=== PATIENT | female | born 1955 | race Caucasian/White ===

== ENCOUNTER → 2016-04-05 | Outpatient (CLI) | payer OTHER ==
[~2016-04-05] MED LIST: CALC-20 PO; CMD5 PO; LPR25 PO; MAGN400T5 PO; RAMI10CA PO; SERT50TA PO
[2016-04-05 15:53] LABS: URINE APPEARANCE TURBID (CLEAR); URINE BILIRUBIN NEG (NEG); URINE COLOR YELLOW; URINE EPITHELIAL CELL AUTO 20-30 /lpf (0-5); URINE NITRITE NEG (NEG); URINE SPECIFIC GRAVITY 1.022 (1.000-1.030); UROBILINOGEN NEG (NEG)
[2016-04-05 15:59] LABS: MANUAL MICROSCOPIC REQUIRED? NO; REVIEW REQ? YES
== END | disposition home or self-care (01) ==
LOC: C.LABSPEC 15:27
PROVIDERS: ATTEND Internal Medicine Hematology
DX: C56.9 Malignant neoplasm of unspecified ovary (principal)

== ENCOUNTER 2017-02-24 10:20 | Emergency (ER) | payer OTHER ==
[~2017-02-24] VITALS: Ht 167.6 cm; Wt 144.8 kg
[2017-02-24 10:30] VITALS: TEMP 36.6; Ht 167.6 cm; Wt 144.8 kg
[2017-02-24] MEDS ORDERED: WARF5TAB7 PO (11:14)
[2017-02-24] MEDS ORDERED: BENZONATATE 100MG CAP PO ONE (11:15)
[2017-02-24 11:56] LABS: BASO % 0.3 %; BASO ABS # 0.02 K/uL (0-0.2); EOS % 1.7 %; EOS ABS # 0.13 K/uL (0-0.5); HEMOGLOBIN 10.2 g/dL (12.0-16.0); IG# 0.02 K/uL (0.00-0.02); LYMPH % 14.9 %; LYMPH ABS # 1.13 K/uL (1.2-3.4); MEAN CELL VOLUME 87.9 fL (80-100); MEAN CORPUSCULAR HGB CONC 31.9 g/dl (32-36); MEAN PLATELET VOLUME 9.1 fL (7.4-10.4); MONO % 6.5 %; MONO ABS # 0.49 K/uL (0.11-0.59); NEUT % 76.3 %; NEUT ABS # 5.77 K/uL (1.4-6.5); PLATELET COUNT 234 K/uL (130-400); RED CELL DISTRIBUTION WIDTH CV 14.7 % (11.5-14.5); RED CELL DISTRIBUTION WIDTH SD 47.3 fL (36.4-46.3); WHITE BLOOD COUNT 7.56 K/uL (4.8-10.8)
--- NOTE | 2017-02-24 12:04 | DIAGNOSTIC IMAGING REPORT ---
CHEST ONE VIEW PORTABLE HISTORY: cough, sore throat COMPARISON: Chest 01/30/2016. FINDINGS: Right jugular Port-A-Cath terminates in the SVC. Small hyperdense foci surrounding the intraluminal catheter system with a fibrin sheath. The heart remains enlarged. No new focal lung consolidations. No evidence for pulmonary edema. No pleural effusions. No pneumothorax. There are low lung volumes. Mild interstitial thickening within the left lung base. IMPRESSION: 1. No focal lung consolidations. 2. Mild interstitial thickening at the left lung base. This could be due to vascular crowding or interstitial pneumonitis. 3. Stable cardiomegaly. 4. Fibrin sheath surrounding the proximal intraluminal right jugular Port-A-Cath. Electronically signed by: Champ Dodd M.D. 02/24/2017 12:03 PM Dictated Date/Time: 02/24/2017 12:01 PM
[2017-02-24 12:10] LABS: CALCIUM 9.4 mg/dl (8.5-10.1); CREATININE 0.73 mg/dl (0.60-1.20); POTASSIUM 4.4 mmol/L (3.5-5.1)
[2017-02-24] MEDS ORDERED: BENZ100C18 PO (13:40)
--- NOTE | 2017-02-24 13:40 | EMERGENCY ROOM VISIT NOTE ---
History Report prepared by Shea: Kami Jeffery Under the Supervision of: Dr. Sebastian Simms M.D. First contact with patient: 10:36 Chief Complaint: OTHER COMPLAINT Stated Complaint: COUGH/CHEST CONGESTION History of Present Illness The patient is a 61 year old female with a past medical history of ovarian cancer who presents to the ED with a cc of worsening sore throat beginning last night. Positive ear pain, productive cough, and chest pain. She states that the substance is yellow in color. She describes the pain as a tightness. Negative recent changes in elevation. Source of History: patient Onset: last night Position: throat Quality: other (sore) Timing: worsening Associated Symptoms: + cough, + chest pain Note: The patient complains of ear pain. Review of Systems See HPI for pertinent positives and negatives. A total of ten systems were reviewed and were otherwise negative. Past Medical & Surgical Medical Problems: (1) Chronic anticoagulation (2) Depression (3) DM type 2 (diabetes mellitus, type 2) (4) GERD (gastroesophageal reflux disease) (5) History of PSVT (paroxysmal supraventricular tachycardia) (6) Hospice care patient (7) Hypertension (8) Obesity, morbid, BMI 50 or higher (9) Ovarian cancer (10) Partial bowel obstruction (11) Pulmonary embolism (12) SBO (small bowel obstruction) (13) Ventral hernia Surgical Problems: (1) H/O wisdom tooth extraction (2) History of cholecystectomy (3) s/p port placement (4) S/P total hysterectomy and BSO (bilateral salpingo-oophorectomy) Family History Cancer FATHER (colon CA) Diabetes mellitus MOTHER BROTHER Gallbladder disease Heart disease Hypertension Kidney disease Kidney stones Lung disease Social History Smoking Status: Never Smoker Alcohol Use: none Drug Use: none Marital Status: single Housing Status: lives alone Occupation Status: unemployed Current/Historical Medications Scheduled Benzonatate (Tessalon Perles), 100 MG PO TID Calcium Carbonate-Vitamin D (Calcium 600 + D), 2 TAB PO DAILY Magnesium Oxide (Mag-Ox), 400 MG PO BID Metoprolol Tartrate (Lopressor), 25 MG PO BID Ramipril (Ramipril), 10 MG PO BID Sertraline (Zoloft), 50 MG PO DAILY Warfarin Sod (Coumadin), 7.5 MG PO 3XWK Warfarin Sod (Jantoven), 5 MG PO 4XWK Allergies Coded Allergies: No Known Allergies (Unverified , 02/24/17) Physical Exam Vital Signs Date Time Temp Pulse Resp B/P (MAP) Pulse Ox O2 Delivery O2 Flow Rate FiO2 02/24/17 13:55 74 18 145/83 95 02/24/17 13:18 76 02/24/17 12:40 80 18 126/69 94 Room Air 02/24/17 11:39 74 18 141/80 95 Room Air 02/24/17 10:39 81 02/24/17 10:30 36.6 87 20 145/55 98 Nasal Cannula 3.0 Physical Exam GENERAL: Awake, alert, well-appearing, NAD HENT: Normocephalic, atraumatic. Posterior pharynx clear. No tonsillar or uvular deviation. EYES: Normal conjunctiva. Sclera non-icteric. NECK: Supple. No nuchal rigidity. FROM. Non stridulous. RESPIRATORY: Sonorous breath sounds throughout, no rhonchi, wheezing, crackles CARDIAC: RRR, no MRG ABDOMEN: Soft, NTND, BS+ MSK: No chest wall TTP, no LE edema, port in right chest. NEURO: GCS 15, CN 2-12 intact, moves all 4s on command SKIN: No rash or jaundice noted. Medical Decision & Procedures ER Provider Diagnostic Interpretation: Radiology results as stated below per my review and radiologist interpretation: CHEST ONE VIEW PORTABLE HISTORY: cough, sore throat COMPARISON: Chest 01/30/2016. FINDINGS: Right jugular Port-A-Cath terminates in the SVC. Small hyperdense foci surrounding the intraluminal catheter system with a fibrin sheath. The heart remains enlarged. No new focal lung consolidations. No evidence for pulmonary edema. No pleural effusions. No pneumothorax. There are low lung volumes. Mild interstitial thickening within the left lung base. IMPRESSION: 1. No focal lung consolidations. 2. Mild interstitial thickening at the left lung base. This could be due to vascular crowding or interstitial pneumonitis. 3. Stable cardiomegaly. 4. Fibrin sheath surrounding the proximal intraluminal right jugular Port-A-Cath. Electronically signed by: Champ Dodd M.D. 02/24/2017 12:03 PM Dictated Date/Time: 02/24/2017 12:01 PM Laboratory Results 02/24/17 11:40 Red Blood Count 3.64, Mean Corpuscular Volume 87.9, Mean Corpuscular Hemoglobin 28.0, Mean Corpuscular Hemoglobin Concent 31.9, Mean Platelet Volume 9.1, Neutrophils (%) (Auto) 76.3, Lymphocytes (%) (Auto) 14.9, Monocytes (%) (Auto) 6.5, Eosinophils (%) (Auto) 1.7, Basophils (%) (Auto) 0.3, Neutrophils # (Auto) 5.77, Lymphocytes # (Auto) 1.13, Monocytes # (Auto) 0.49, Eosinophils # (Auto) 0.13, Basophils # (Auto) 0.02 02/24/17 11:40 Test 02/24/17 11:40 White Blood Count 7.56 K/uL (4.8-10.8) Red Blood Count 3.64 M/uL (4.2-5.4) Hemoglobin 10.2 g/dL (12.0-16.0) Hematocrit 32.0 % (37-47) Mean Corpuscular Volume 87.9 fL (80-100) Mean Corpuscular Hemoglobin 28.0 pg (25-34) Mean Corpuscular Hemoglobin Concent 31.9 g/dl (32-36) Platelet Count 234 K/uL (130-400) Mean Platelet Volume 9.1 fL (7.4-10.4) Neutrophils (%) (Auto) 76.3 % Lymphocytes (%) (Auto) 14.9 % Monocytes (%) (Auto) 6.5 % Eosinophils (%) (Auto) 1.7 % Basophils (%) (Auto) 0.3 % Neutrophils # (Auto) 5.77 K/uL (1.4-6.5) Lymphocytes # (Auto) 1.13 K/uL (1.2-3.4) Monocytes # (Auto) 0.49 K/uL (0.11-0.59) Eosinophils # (Auto) 0.13 K/uL (0-0.5) Basophils # (Auto) 0.02 K/uL (0-0.2) RDW Standard Deviation 47.3 fL (36.4-46.3) RDW Coefficient of Variation 14.7 % (11.5-14.5) Immature Granulocyte % (Auto) 0.3 % Immature Granulocyte # (Auto) 0.02 K/uL (0.00-0.02) Anion Gap 7.0 mmol/L (3-11) Est Creatinine Clear Calc Drug Dose 119.4 ml/min Estimated GFR () 103.0 Estimated GFR (Non- 88.9 BUN/Creatinine Ratio 20.9 (10-20) Calcium Level 9.4 mg/dl (8.5-10.1) Laboratory results reviewed by me Medications Administered Medications (Trade) Dose Ordered Sig/Aknu Route Start Time Stop Time Status Last Admin Dose Admin Prednisone (PredniSONE TAB) 50 mg NOW STAT PO 02/24/17 11:04 02/24/17 11:06 DC 02/24/17 11:25 50 MG Benzonatate (Tessalon Perles Cap) 100 mg NOW ONCE PO 02/24/17 11:15 02/24/17 11:16 DC 02/24/17 11:25 100 MG Heparin Sodium (Porcine) (Heparin 100 Unit/ml 5ml Flush) 5 ml STK-MED ONCE .ROUTE 02/24/17 13:48 02/24/17 13:49 DC 02/24/17 13:48 5 ML ED Course 1048: The patient was evaluated in room C3. A complete history and physical exam was performed. 1348: I reevaluated the patient. Discussed results and discharge instructions: she verbalized understanding and agreement. The patient is ready for discharge. Medical Decision The patient is a 61 year old female with a past medical history of ovarian cancer who presents to the ED with a cc of worsening sore throat beginning last night. Etiologies such as viral syndrome, tonsillitis, streptococcal pharyngitis, mononucleosis, peritonsillar abscess, retropharyngeal abscess, otitis, pneumonia , influenza, as well as others were entertained. Patient was seen and evaluated at the bedside. Patient had been complaining of some sore throat. Patient does have some questionable productive cough. Patient denies any smoking. Patient was previously on hospice however she has done better than anticipated sugars she was taken off hospice. Patient does not receive any further chemotherapy or radiation therapy. Patient states her symptoms began last evening. Patient was any smoking or pain. On exam patient has normal-appearing TMs. Patient has a clear posterior pharynx. Patient did have a chest x-ray that was completed. There was crushable pneumonitis versus vascular crowding. Given that the patient is not tachypneic, tachycardic, nor hypoxic and with a normal white count we decided not treat with any antibiotics at this time. Patient states that her symptoms were improved. With the Tessalon Perles. Patient of note does take Coumadin for history of PE in the past. Patient denies any shortness of breath or chest pains. Given the fact the patient was feeling improved I did discuss that we were somewhat limited as we should avoid things like Motrin and steroids chronically given the patient's Coumadin use. Patient was given 1 dose of steroids here in the department. Given that her symptoms had improved with that she likely just has a laryngitis or pharyngitis. Again elected not to treat with antibiotics given her normal white blood cell count, normal vital signs. Patient was very well-appearing thereafter and did want to go home. I believe the patient is suitable for outpatient follow-up and treatment this time. Patient was given strict follow-up , discharge, and return precautions. All questions were answered. Patient was deemed suitable for outpatient follow-up at this time. Patient agreed with the plan of care and was safely discharged home. Medication Reconcilliation Current Medication List: was personally reviewed by me Blood Pressure Screening Patient's blood pressure: Elevated blood pressure Blood pressure disposition: Referred to PCP Impression Primary Impression: URI (upper respiratory infection) Additional Impression: Anemia Scribe Attestation The scribe's documentation has been prepared under my direction and personally reviewed by me in its entirety. I confirm that the note above accurately reflects all work, treatment, procedures, and medical decision making performed by me. Departure Information Dispostion Home / Self-Care Prescriptions Benzonatate (TESSALON PERLES) 100 Mg Cap 100 MG PO TID for 5 Days, #15 CAP Prov: Sebastian Simms M.D. 02/24/17 Referrals No Doctor, Assigned (PCP) Forms HOME CARE DOCUMENTATION FORM, IMPORTANT VISIT INFORMATION, WORK / SCHOOL INSTRUCTIONS Patient Instructions Coughing Techniques, Deep Coughing, My miLibris, Sore Throats Self Care Additional Instructions Please return to the emergency department if you have worsening or recurrent symptoms not amenable to at-home treatment. Please call for a follow-up appointment with her primary care physician. Please take your medications as prescribed. If you have other concerns and/or complaints please feel free to also call your primary care physician's office or return the ED for further evaluation, management, and treatment. You may take tylenol 650 mg every 6 hours as needed for pain. Take your medications as prescribed. You have been examined and treated today on an emergency basis only. This is not a substitute for, or an effort to provide, complete comprehensive medical care. It is impossible to recognize and treat all injuries or illnesses in a single emergency department visit. It is therefore important that you follow up closely with [facility], your PCP, and/or your specialist(s). Call as soon as possible for an appointment. Thank you for your time and consideration. I look forward to speaking with you again soon. Please don't hesitate to call us if you have any questions. Problem Qualifiers Primary Impression: URI (upper respiratory infection) URI type: unspecified URI Qualified Codes: J06.9 - Acute upper respiratory infection, unspecified Additional Impression: Anemia Anemia type: unspecified type Qualified Codes: D64.9 - Anemia, unspecified
[2017-02-24 13:55] VITALS: BP 145/83; PULSE 74; O2SAT 95
== END 2017-02-24 13:56 | disposition home or self-care (01) ==
LOC: EDBD 10:20 → C.EDC 10:22
DX: J06.9 Acute upper respiratory infection, unspecified (principal); D64.9 Anemia, unspecified; E11.9 Type 2 diabetes mellitus without complications; I10 Essential (primary) hypertension; F32.9 Major depressive disorder, single episode, unspecified; Z86.711 Personal history of pulmonary embolism; Z85.43 Personal history of malignant neoplasm of ovary; Z90.49 Acquired absence of other specified parts of digestive tract; Z98.818 Other dental procedure status; Z98.890 Other specified postprocedural states; Z90.710 Acquired absence of both cervix and uterus; Z90.79 Acquired absence of other genital organ(s); Z80.0 Family history of malignant neoplasm of digestive organs; Z83.3 Family history of diabetes mellitus; Z82.49 Family history of ischemic heart disease and other diseases of the circulatory system; Z84.1 Family history of disorders of kidney and ureter; Z79.01 Long term (current) use of anticoagulants; Z79.899 Other long term (current) drug therapy

== ENCOUNTER 2017-03-11 15:57 | Emergency (ER) | payer OTHER ==
[~2017-03-11] VITALS: Ht 162.6 cm; Wt 145.9 kg
[~2017-03-11 15:57] MED LIST changes: +WARF5TAB7 PO
[2017-03-11 16:04] VITALS: TEMP 37; Ht 162.6 cm; Wt 145.9 kg
[2017-03-11 16:41] LABS: BASO % 0.5 %; BASO ABS # 0.04 K/uL (0-0.2); EOS % 1.2 %; HEMATOCRIT 32.9 % (37-47); HEMOGLOBIN 10.7 g/dL (12.0-16.0); IG# 0.03 K/uL (0.00-0.02); LYMPH % 14.7 %; LYMPH ABS # 1.22 K/uL (1.2-3.4); MEAN CELL VOLUME 87.5 fL (80-100); MEAN CORPUSCULAR HEMOGLOBIN 28.5 pg (25-34); MEAN CORPUSCULAR HGB CONC 32.5 g/dl (32-36); MEAN PLATELET VOLUME 8.9 fL (7.4-10.4); MONO % 6.3 %; MONO ABS # 0.52 K/uL (0.11-0.59); NEUT % 76.9 %; NEUT ABS # 6.37 K/uL (1.4-6.5); PLATELET COUNT 268 K/uL (130-400); RED CELL DISTRIBUTION WIDTH CV 15.3 % (11.5-14.5); RED CELL DISTRIBUTION WIDTH SD 48.8 fL (36.4-46.3); WHITE BLOOD COUNT 8.28 K/uL (4.8-10.8)
--- NOTE | 2017-03-11 16:46 | DIAGNOSTIC IMAGING REPORT ---
CHEST 2 VIEWS ROUTINE CLINICAL HISTORY: Pneumonia COMPARISON STUDY: 02/24/2017 FINDINGS: The heart is enlarged. There is a right sided A-Port catheter unchanged in position. There is no focal pulmonary consolidation. There is no failure. There are no pleural effusions.[ IMPRESSION: Stable cardiomegaly. No acute findings. Electronically signed by: Mj Robin M.D. 03/11/2017 4:45 PM Dictated Date/Time: 03/11/2017 4:44 PM
[2017-03-11 16:49] LABS: ALBUMIN 3.1 gm/dl (3.4-5.0); ALT/SGPT 25 U/L (12-78); BLOOD UREA NITROGEN 19 mg/dl (7-18); CALCIUM 8.9 mg/dl (8.5-10.1); CARBON DIOXIDE 27 mmol/L (21-32); CREATININE 1.13 mg/dl (0.60-1.20); GLUCOSE 128 mg/dl (70-99); SODIUM 137 mmol/L (136-145)
[2017-03-11 16:54] LABS: ALKALINE PHOSPHATASE 90 U/L (45-117); AST/SGOT 25 U/L (15-37); TOTAL PROTEIN 8.1 gm/dl (6.4-8.2)
[2017-03-11 16:57] LABS: INR 2.4 (0.9-1.1)
[2017-03-11 16:59] LABS: PTT PATIENT 49.2 SECONDS (21.0-31.0)
[2017-03-11 16:59] LABS: INFLUENZA B ANTIGEN Neg for Influ B (NEG)
--- NOTE | 2017-03-11 17:07 | DIAGNOSTIC IMAGING REPORT ---
ULTRASOUND VENOUS DOPPLER LWR EXT BILA CLINICAL HISTORY: Bilateral leg swelling COMPARISON STUDY: No previous studies for comparison. FINDINGS: Real-time and color flow Doppler imaging were performed. Flow was seen within the femoral, popliteal and calf veins with no intraluminal thrombus demonstrated. The saphenous vein is patent. IMPRESSION: No evidence of lower extremity DVT. Electronically signed by: Mj Robin M.D. 03/11/2017 5:05 PM Dictated Date/Time: 03/11/2017 5:04 PM
[2017-03-11] MEDS ORDERED: CEFAZOLIN SOD 1000MG/7.5 ML IV PUSH IV STA (17:40)
[2017-03-11] MEDS ORDERED: DOXY100C2 PO (17:41)
[2017-03-11 19:00] VITALS: BP 113/76; PULSE 65; O2SAT 98
--- NOTE | 2017-03-11 19:43 | EMERGENCY ROOM VISIT NOTE ---
History Report prepared by Shea: Ozzie Ortega Under the Supervision of: Dr. Antoine Esqueda M.D. First contact with patient: 16:02 Chief Complaint: SWELLING TO EXTREMITY Stated Complaint: BILAT. LEG EDEMA History of Present Illness The patient is a 61 year old female who presents to the Emergency Room with complaints of worsening swelling in her lower extremities that began three days prior to arrival. The patient states that she first started noticing the swelling in her left calf on Saturday, three days ago. This swelling has steadily worsened since its onset, and was followed by swelling in both thighs. The patient does have a history of pulmonary emboli, and takes Coumadin daily. She denies missing any dosages of this medication. She had her INR checked roughly 1.5 weeks ago and it was around 2.2. The patient was in the Emergency Department on the 14, 15 days ago for a cough and chest congestion. Her cough is still producing a white mucous. She was diagnosed with URI and Anemia. Since this time the patient's cough and shortness of breath has persisted. She is on oxygen at home at baseline. She also has a history of metastatic ovarian cancer. Source of History: patient Onset: 3 days Position: leg (bilateral) Symptom Intensity: moderate Quality: other (Swelling) Timing: worsening Associated Symptoms: + cough, + SOB (chronic) Review of Systems See HPI for pertinent positives & negatives. A total of 10 systems reviewed and were otherwise negative. Past Medical & Surgical Medical Problems: (1) Chronic anticoagulation (2) Depression (3) DM type 2 (diabetes mellitus, type 2) (4) GERD (gastroesophageal reflux disease) (5) History of PSVT (paroxysmal supraventricular tachycardia) (6) Hospice care patient (7) Hypertension (8) Obesity, morbid, BMI 50 or higher (9) Ovarian cancer (10) Partial bowel obstruction (11) Pulmonary embolism (12) SBO (small bowel obstruction) (13) Ventral hernia Surgical Problems: (1) H/O wisdom tooth extraction (2) History of cholecystectomy (3) s/p port placement (4) S/P total hysterectomy and BSO (bilateral salpingo-oophorectomy) Family History Cancer FATHER (colon CA) Diabetes mellitus MOTHER BROTHER Gallbladder disease Heart disease Hypertension Kidney disease Kidney stones Lung disease Social History Smoking Status: Never Smoker Alcohol Use: none Drug Use: none Marital Status: single Housing Status: lives alone Occupation Status: unemployed Current/Historical Medications Scheduled Calcium Carbonate-Vitamin D (Calcium 600 + D), 2 TAB PO DAILY Doxycycline Hyclate (Vibramycin), 100 MG PO BID Magnesium Oxide (Mag-Ox), 400 MG PO BID Metoprolol Tartrate (Lopressor), 25 MG PO BID Ramipril (Ramipril), 10 MG PO BID Sertraline (Zoloft), 50 MG PO DAILY Warfarin Sod (Coumadin), 7.5 MG PO 3XWK Warfarin Sod (Jantoven), 5 MG PO 4XWK Allergies Coded Allergies: No Known Allergies (Unverified , 02/24/17) Physical Exam Vital Signs Date Time Temp Pulse Resp B/P (MAP) Pulse Ox O2 Delivery O2 Flow Rate FiO2 03/11/17 19:00 65 16 113/76 98 Room Air 03/11/17 17:38 77 16 139/71 99 Room Air 03/11/17 16:21 91 03/11/17 16:04 37.0 100 22 195/91 99 Nasal Cannula 4.0 Physical Exam Constitutional: Vital signs reviewed. Eyes: Pupils are equal round reactive to light. Conjunctiva are noninjected. ENT: Pharynx is clear without erythema or exudate. Mucous membranes are moist. Neck supple without meningeal signs. Respiratory: Clear to auscultation bilaterally. Breath sounds are equal bilaterally. Cardiovascular: Regular rate and rhythm. No rubs or gallops. GI: Soft, nondistended and nontender. Bowel sounds are present. Musculoskeletal: There was swelling and some erythema to the lateral left calf without any appreciable swelling to the thighs. Normal distal pulses. No lower extremity tenderness. Integumentary: No cyanosis. Neurological: The patient is awake and alert. No focal deficits. Psychiatric: Normal affect. Medical Decision & Procedures ER Provider Diagnostic Interpretation: Radiology results as stated below per my review and the radiologist's interpretation: CHEST 2 VIEWS ROUTINE CLINICAL HISTORY: Pneumonia COMPARISON STUDY: 02/24/2017 FINDINGS: The heart is enlarged. There is a right sided A-Port catheter unchanged in position. There is no focal pulmonary consolidation. There is no failure. There are no pleural effusions.[ IMPRESSION: Stable cardiomegaly. No acute findings. Electronically signed by: Mj Robin M.D. 03/11/2017 4:45 PM Dictated Date/Time: 03/11/2017 4:44 PM ULTRASOUND VENOUS DOPPLER LWR EXT BILA CLINICAL HISTORY: Bilateral leg swelling COMPARISON STUDY: No previous studies for comparison. FINDINGS: Real-time and color flow Doppler imaging were performed. Flow was seen within the femoral, popliteal and calf veins with no intraluminal thrombus demonstrated. The saphenous vein is patent. IMPRESSION: No evidence of lower extremity DVT. Electronically signed by: Mj Robin M.D. 03/11/2017 5:05 PM Dictated Date/Time: 03/11/2017 5:04 PM Laboratory Results 03/11/17 16:19 Red Blood Count 3.76, Mean Corpuscular Volume 87.5, Mean Corpuscular Hemoglobin 28.5, Mean Corpuscular Hemoglobin Concent 32.5, Mean Platelet Volume 8.9, Neutrophils (%) (Auto) 76.9, Lymphocytes (%) (Auto) 14.7, Monocytes (%) (Auto) 6.3, Eosinophils (%) (Auto) 1.2, Basophils (%) (Auto) 0.5, Neutrophils # (Auto) 6.37, Lymphocytes # (Auto) 1.22, Monocytes # (Auto) 0.52, Eosinophils # (Auto) 0.10, Basophils # (Auto) 0.04 03/11/17 16:19 Test 03/11/17 16:19 03/11/17 16:25 White Blood Count 8.28 K/uL (4.8-10.8) Red Blood Count 3.76 M/uL (4.2-5.4) Hemoglobin 10.7 g/dL (12.0-16.0) Hematocrit 32.9 % (37-47) Mean Corpuscular Volume 87.5 fL (80-100) Mean Corpuscular Hemoglobin 28.5 pg (25-34) Mean Corpuscular Hemoglobin Concent 32.5 g/dl (32-36) Platelet Count 268 K/uL (130-400) Mean Platelet Volume 8.9 fL (7.4-10.4) Neutrophils (%) (Auto) 76.9 % Lymphocytes (%) (Auto) 14.7 % Monocytes (%) (Auto) 6.3 % Eosinophils (%) (Auto) 1.2 % Basophils (%) (Auto) 0.5 % Neutrophils # (Auto) 6.37 K/uL (1.4-6.5) Lymphocytes # (Auto) 1.22 K/uL (1.2-3.4) Monocytes # (Auto) 0.52 K/uL (0.11-0.59) Eosinophils # (Auto) 0.10 K/uL (0-0.5) Basophils # (Auto) 0.04 K/uL (0-0.2) RDW Standard Deviation 48.8 fL (36.4-46.3) RDW Coefficient of Variation 15.3 % (11.5-14.5) Immature Granulocyte % (Auto) 0.4 % Immature Granulocyte # (Auto) 0.03 K/uL (0.00-0.02) Prothrombin Time 24.6 SECONDS (9.0-12.0) Prothromb Time International Ratio 2.4 (0.9-1.1) Activated Partial Thromboplast Time 49.2 SECONDS (21.0-31.0) Partial Thromboplastin Ratio 1.9 Anion Gap 7.0 mmol/L (3-11) Est Creatinine Clear Calc Drug Dose 75.3 ml/min Estimated GFR () 60.7 Estimated GFR (Non- 52.4 BUN/Creatinine Ratio 16.6 (10-20) Calcium Level 8.9 mg/dl (8.5-10.1) Total Bilirubin 0.3 mg/dl (0.2-1) Direct Bilirubin < 0.1 mg/dl (0-0.2) Aspartate Amino Transf (AST/SGOT) 25 U/L (15-37) Alanine Aminotransferase (ALT/SGPT) 25 U/L (12-78) Alkaline Phosphatase 90 U/L (45-117) Troponin I < 0.015 ng/ml (0-0.045) Pro-B-Type Natriuretic Peptide 166 pg/ml (0-900) Total Protein 8.1 gm/dl (6.4-8.2) Albumin 3.1 gm/dl (3.4-5.0) Influenza Type A Antigen Neg for Influ A (NEG) Influenza Type B Antigen Neg for Influ B (NEG) Laboratory results as reviewed by me. Medications Administered Medications (Trade) Dose Ordered Sig/Kanu Route Start Time Stop Time Status Last Admin Dose Admin Cefazolin Sodium (Cefazolin 1000mg Iv Push) 1,000 mg NOW STAT IV 03/11/17 17:40 03/11/17 17:41 DC 03/11/17 17:40 1,000 MG Heparin Sodium (Porcine) (Heparin 10 Unit/ ml 5 ml Flush) 5 ml STK-MED ONCE .ROUTE 03/11/17 17:55 03/11/17 17:56 DC 03/11/17 17:55 5 ML ECG Indication: SOB/dyspnea Rate (beats per minute): 86 Rhythm: normal sinus Findings: no acute ischemic change, no ectopy Change: Patient's electrocardiogram per my interpretation. ED Course 1605: The patient was evaluated in room A9A. A complete history and physical exam was performed. 1716: I attempted to check on the patient at this time. She is still at [facility]. 1737: Upon reevaluation, the patient appeared to have improvement of her symptoms. I discussed tonight's findings with her. She verbalized agreement of the treatment plan. The patient was discharged home. 1740: Ordered Cefazolin Sodium 1000 mg IV. Medical Decision This is a 61-year-old female who presents with leg swelling. Differential diagnosis includes DVT, cellulitis, superficial thrombophlebitis, abscess, edema. I did perform a limited focused review of portions of the patient's old chart on the electronic medical record. The patient was in the Emergency Department on the of this month for a cough and congestion. She was diagnosed with an URI and Anemia. I did evaluate the patient as noted above. The patient is presenting with obvious swelling to her left lower leg over the calf. She also states she feels a sensation of swelling over her thighs but I don't appreciate that on physical examination. Her calf is also erythematous although without increased warmth. She also complains of persistent cough. IV access was established. I did order and personally review the patient's 12-lead EKG and chest x-ray as described above. Her chest x-ray does not demonstrate a pneumonia. I did order and review the patient's blood work as noted in the electronic medical record. Her INR is therapeutic. I did order a Doppler ultrasound of the lower extremities. I did review the images myself as well as the radiology report as described above. There is no evidence of DVT. I did discuss the test results with the patient. At this time her symptoms seem most consistent with a cellulitis to left lower extremity. I did recommend anabolic treatment. I did treat her with doxycycline and Ancef. She was given a gram of Ancef here and discharged with a prescription for doxycycline. I did recommend she follow up within 48 hours with her doctor for reevaluation. She was told to return for any worsening symptoms or any new concerning symptoms as described below. Medication Reconcilliation Current Medication List: was personally reviewed by me Blood Pressure Screening Patient's blood pressure: Elevated blood pressure Impression Primary Impression: Left leg cellulitis Additional Impressions: Bronchitis Anticoagulated on Coumadin Scribe Attestation The scribe's documentation has been prepared under my direct and personally reviewed by me in its entirety. I confirm that the note above accurately reflects all work, treatment, procedures, and medical decision making performed by me. Departure Information Dispostion Home / Self-Care Prescriptions Doxycycline Hyclate (VIBRAMYCIN) 100 Mg Cap 100 MG PO BID for 10 Days, #20 CAP Prov: Antoine Esqueda M.D. 03/11/17 Referrals Silvana Lucero M.D. (PCP) Forms HOME CARE DOCUMENTATION FORM, IMPORTANT VISIT INFORMATION, WORK / SCHOOL INSTRUCTIONS Patient Instructions [facility] Additional Instructions You have been examined and treated today on an emergency basis only. This is not a substitute for, or an effort to provide, complete comprehensive medical care. It is impossible to recognize and treat all injuries or illnesses in a single emergency department visit. It is therefore important that you follow up closely with your physician within 48 hours. Call as soon as possible for an appointment. Return for worsening symptoms or if you develop fever, vomiting, chest pain, malaise or any other concerning symptoms. The antibiotic that you are being prescribed may increase the effects of your Coumadin. Have your INR checked next week. Watch for any signs of bleeding, including black or tarry stools or bad headaches. Problem Qualifiers
== END 2017-03-11 19:31 | disposition home or self-care (01) ==
LOC: EDBD 15:57 → C.EDA 15:59
DX: L03.116 Cellulitis of left lower limb (principal); J40 Bronchitis, not specified as acute or chronic; Z79.01 Long term (current) use of anticoagulants; E11.9 Type 2 diabetes mellitus without complications; K21.9 Gastro-esophageal reflux disease without esophagitis; I47.1 Supraventricular tachycardia; I10 Essential (primary) hypertension; E66.01 Morbid (severe) obesity due to excess calories; Z85.43 Personal history of malignant neoplasm of ovary; Z86.711 Personal history of pulmonary embolism; Z80.9 Family history of malignant neoplasm, unspecified; Z83.3 Family history of diabetes mellitus; Z83.79 Family history of other diseases of the digestive system; Z82.49 Family history of ischemic heart disease and other diseases of the circulatory system; Z84.1 Family history of disorders of kidney and ureter; Z83.6 Family history of other diseases of the respiratory system; Z79.899 Other long term (current) drug therapy